=== PATIENT | female | born 1955 | race Caucasian/White ===

== ENCOUNTER 2022-11-12 15:28 | Inpatient (IN) | payer OTHER, SELFPAY ==
[2022-11-12] VITALS (16 sets, daily range): BP systolic 0–135; BP diastolic 0–77; PULSE 0–92; RESP 0–29; TEMP -17.7–36.7; O2SAT 0–100; BMI 24.3
[2022-11-12] MEDS: TICAGRELOR 90 MG TABLET 180 MG PO (15:29)
[2022-11-12] MEDS: Heparin Injection (Vial) 5,000 UNIT/ML VIAL 4000 UNIT IV (15:29)
--- NOTE | 2022-11-12 15:35 | EDS_ITS ---
HPI History of Present Illness Chief Complaint: Chest Pain Detail of Chief Complaint: Midsternal chest pain Informant: patient Onset/Context/Timing Onset: Yesterday Activity at onset: light activity Timing: Continuous Quality: Positive for Aching and Heaviness Location: Substernal Current Severity: Mild Maximum Severity: Severe Worsened By: Exertion Relieved By: Nothing Associated Symptoms: Positive for Nausea and Dyspnea; Negative for Vomiting, Diaphoresis, Cough, Fever, Lightheadedness, Acid Reflux or Palpitations Narrative Narrative: Patient is a 66-year-old woman who arrived by ambulance. Prehospital EKG reveals an acute inferior ST elevation MT with reciprocal changes. Rhythm is sinus. Patient is still complaining of chest pain. She denies prior history MT . She does have history of hypertension and hypercholesterolemia. She received aspirin prehospital. Upon arrival patient was treated with heparin and Brilinta. Case was discussed with clinical lab assistant prior to arrival. Machine Filler Shredder was made aware. Prior Similar Symptoms: No Recent Illness/Hospitalization: No CVD Risk Factors: Positive for Hypertension and Hypercholesterolemia; Negative for Diabetes, Family History 1' </=55 or Smoking PE Risk Factors: Negative for Recent Travel/Surgery, Recent Immobilization or Prior DVT or PE TAD Risk Factors: Positive for Hypertension; Negative for Marfan's Syndrome or Family History PFSH PFSH no medical history (Pretension hypercholesterolemia) Home Medications Benazepril Hcl [Lotensin] 5 mg PO DAILY 12/30/15 [History Last Taken 01/02/16] aspirin 81 mg chewable tablet 81 mg PO DAILY@0800 12/30/15 [History Last Taken 01/02/16] atorvastatin 40 mg tablet 40 mg PO QHS 12/30/15 [History Last Taken Unknown] isosorbide dinitrate 5 mg tablet (Isordil Titradose) 10 mg PO TID 12/30/15 [History Last Taken 01/02/16] methimazole 5 mg tablet 7.5 mg PO DAILY 12/30/15 [History Last Taken Unknown] triamterene 75 mg-hydrochlorothiazide 50 mg tablet 1 tab PO DAILY 12/30/15 [History Last Taken Unknown] Allergy/AdvReac Type Severity Reaction Status Date / Time No Known Allergies Allergy Verified 12/30/15 07:03 Surgical History unable to obtain Social History Smoking Status: Never smoker ROS ROS ED Constitutional Constitutional ED: Denies chills, fever(s) or subjective Eyes Eyes: Reports none Cardiovascular Cardiovascular: Reports as per HPI Respiratory/Chest Respiratory/Chest: Reports dyspnea EXAM Physical Exam Const Vital Signs: 11/12/22 15:30 Temperature 98.1 F Temperature Source Temporal Positive well nourished, well developed and obese General Appearance ED: well developed and NAD Nutritional Appearance: obese HEENT Reports TM's clear and moist mucous membranes normocephalic and atraumatic Tympanic Membrane ED: Yes TM's clear Eyes PERRL and EOMs intact bilaterally General Eye ED: Negative for pale conjunctiva or scleral icterus Neck no lymphadenopathy, supple and no JVD Chest Wall inspection of chest normal and palpation of chest normal Resp normal respiratory effort and clear to auscultation bilaterally Cardio regular rate, regular rhythm, S1 normal heart sound, S2 normal heart sound and no murmurs Peripheral Pulses: pulses 2+ throughout GI normal to inspection, nondistended, normoactive bowel sounds, soft to palpation, non-tender and non-distended; Negative for hepatosplenomegaly or no masses Back/Spine no CVA tenderness Extremity normal to inspection General Extremety ED: Negative for edema or pulses abnormal General Extremity: Negative for edema or pulses abnormal Neuro oriented x3 and CN's II-XII intact bilaterally Sensorium / Orientation: awake and alert Psych mental status grossly normal Skin no rashes or lesions noted and no wounds MDM MDM MDM Narrative Medical decision making narrative: Prehospital EKG reveals acute inferior ST elevation MT. There is reciprocal changes noted. Rate is normal. STEMI alert was called based on prehospital EKG. EKG was not repeated when patient arrived. She was treated with Brilinta and heparin. She received 4 baby aspirin prior to arrival. Machine Filler Shredder was ready. Once she was given her meds she was taken to the Machine Filler Shredder. dedicated regional driver made aware. Chest x-ray was not obtained. Blood work was ordered. Critical Care Time Critical Care Time: Yes Critical care time (excluding procedures): 30-74 minutes (10 minutes), Including time spent: (History,, documentation, review of prior Machine Filler Shredder), Discussing w/Patient &/or Family/Monument Stonecutter, Discussing w/Consultants and Arranging Admission or Transfer Discharge Plan Triage Chief Complaint: Chest Pain ED Provider: Provider,Ed Physician Dx/Rx/DC Orders Clinical Impression: Acute inferior myocardial infarction, History of primary hypertension, Hx of hypercholesterolemia Primary Care Provider: Michael Small Disposition Disposition: Acute Care Hospital [facility]
--- NOTE | 2022-11-12 15:36 | NURSING ---
NO OLD EKGS
--- NOTE | 2022-11-12 15:39 | NURSING ---
CV ICU 202
--- NOTE | 2022-11-12 15:41 | NURSING ---
1509 STEMI CALLED PRIOR TO ARRIVAL
[2022-11-12] MEDS: Amiodarone 360 MG in Dextrose 5% Viaflo Bag 192.8 ML 33.3 MG CONT INF (16:00)
[2022-11-12] MEDS: 0.9% Normal Saline 1,000 ML 150 ML IV (16:00)
--- NOTE | 2022-11-12 16:05 | CM.ED ---
Social Work Note Referral Source: Stemi Alert Referral Reason: emotional support SW met with patient's daughter and Ray ([facility] [place]) and introduced herself and role as [facility] C S S Representative. SW provided patient with emotional support while in the cardiac cath lab radiology technologist waiting area. Patient's daughter states she will be staying with patient during her procedure to support her. No other needs voiced at this time. SW remains available if other needs arise. Krissy Aly BARREL CLEANER, ANA
--- NOTE | 2022-11-12 16:25 | ECHOD_ITS ---
Reason For Study: CHEST PAIN Procedure This was a 2D Doppler, Color Flow transthoracic echocardiogram. Exam performed portable in ICU/CCU. Left Ventricle Normal size and thickness. The left ventricular ejection fraction is 55 %. Infero-Basal: Severely Hypokinetic. Right Ventricle Normal right ventricle. Atria The left and right atria are normal. Mitral Valve Mild-Moderate (1-2+) mitral valve insufficiency. Tricuspid Valve Normal tricuspid valve. Aortic Valve Trisinus/trileaflet aortic valve. Pulmonic Valve The pulmonic valve is not well visualized. Great Vessels Normal sized aortic root. Pericardium/Pleural No pericardial effusion. MMode/2D Measurements & Calculations RVDd: 1.7 cm Ao root diam: 2.8 cm LAV(MOD-sp4): 17.6 ml LVAd ap4: 16.8 cm2 SV(MOD-sp4): 15.3 ml SV(sp4-el): 16.2 ml LVLd ap4: 6.3 cm EDV(MOD-sp4): 37.3 ml EDV(sp4-el): 38.2 ml LVAs ap4: 11.4 cm2 LVLs ap4: 5.0 cm ESV(MOD-sp4): 21.9 ml ESV(sp4-el): 22.0 ml EF(MOD-sp4): 41.2 % EF(sp4-el): 42.5 % LA A4 area: 9.0 cm2 LA dimension(2D): 2.8 cm RA A4 area: 8.5 cm2 Time Measurements MV dec time: 0.16 sec Doppler Measurements & Calculations MV E max esa: 67.6 cm/sec Lat Peak E' Esa: 5.0 cm/sec Med Peak E' Esa: 6.6 cm/sec MV A max esa: 118.0 cm/sec E/E' lat: 13.4 E/E' med: 10.3 MV E/A: 0.57 MV V2 max: 113.8 cm/sec Ao V2 max: 113.5 cm/sec MV max P.2 mmHg MV dec slope: 425.0 cm/sec2 Ao max P.2 mmHg MV V2 mean: 53.4 cm/sec Ao V2 mean: 75.2 cm/sec MV mean P.5 mmHg Ao mean P.6 mmHg MV V2 VTI: 33.7 cm Ao V2 VTI: 23.4 cm AV (velocity ratio): 0.84 LV V1 max: 91.5 cm/sec LV V1 max P.4 mmHg LV V1 mean P.7 mmHg LV V1 mean: 59.8 cm/sec LV V1 VTI: 19.7 cm ECHO/Echo Complete Interpretation Summary The left ventricular ejection fraction is 55 %. Infero-Basal: Severely Hypokinetic. Mild-Moderate (1-2+) mitral valve insufficiency. Ordering Physician: Patience Mcgrath Referring Physician: DUSTY MONTERO Performed By: Sheridan Padron RCS
--- NOTE | 2022-11-12 16:30 | EKG12_ITS ---
Test Reason : AM EKG Blood Pressure : / mmHG Vent. Rate : 073 BPM Atrial Rate : 073 BPM P-R Int : 148 ms QRS Dur : 086 ms QT Int : 424 ms P-R-T Axes : 061 030 -50 degrees QTc Int : 467 ms Normal sinus rhythm Low voltage QRS Inferior infarct , age undetermined Abnormal ECG When compared with ECG of 13-NOV-2022 05:20, MANUAL COMPARISON REQUIRED, DATA IS UNCONFIRMED Confirmed by CHEYENNE CHAMBERS, MICHAEL ([id number]), editor school photograph TAYLER WHITLOCK ([id number]) on 11/14/2022 12:58:12 PM Referred By: COURTNEY Confirmed By:MICHAEL QUINN MD
--- NOTE | 2022-11-12 16:33 | CON.PCM.CA_ITS ---
Assessment & Plan Assessment/Plan (1) Acute inferior myocardial infarction: PLAN: After obtaining informed consent, emergent coronary angiography was performed. This showed total occlusion of the proximal right coronary artery. Successful percutaneous revascularization was performed with balloon angioplasty and placement of 2 drug-eluting stents to the mid and proximal right coronary artery. Excellent results were noted with sabianism of NEO-3 flow and resolution of EKG changes. Continue aspirin lifelong. Clopidogrel treatment for at least 1 year. (2) Coronary artery disease: PLAN: See #1 above. Residual lesion in left circumflex/obtuse marginal. For staged PCI. Start beta-blockers. Start low-dose NORBERTO inhibitor's. Statins. Check echo. (3) Hypertension: PLAN: Beta-blockers and NORBERTO inhibitors. (4) Hx of hypercholesterolemia: PLAN: Atorvastatin. (5) Hyperthyroidism: PLAN: As per internal medicine. HPI Consult Data Date of Consult: 11/13/22 HPI Narrative HPI Narrative: The patient developed intrascapular pain earlier today. EMS was called. An EKG was done in the field which showed changes consistent with acute inferior ST elevation myocardial infarction. Subsequently a STEMI alert was called. No previous history of coronary artery disease. [facility] Medical History (Updated 11/13/22 @ 07:48 by Padmini Montenegro) Atherosclerosis of coronary artery of [facility] [place] heart without angina pectoris STEMI (ST elevation myocardial infarction) (~11/12/22) Medical History no medical history Home Medications Benazepril Hcl [Lotensin] 5 mg PO DAILY Check with primary doctor 12/30/15 [History Last Taken 01/02/16] aspirin 81 mg chewable tablet 81 mg PO DAILY@0800 Check with primary doctor 12/30/15 [History Last Taken 01/02/16] atorvastatin 40 mg tablet 40 mg PO QHS Check with primary doctor 12/30/15 [History Last Taken Unknown] isosorbide dinitrate 5 mg tablet (Isordil Titradose) 10 mg PO TID Check with primary doctor 12/30/15 [History Last Taken 01/02/16] methimazole 5 mg tablet 7.5 mg PO DAILY Check with primary doctor 12/30/15 [History Last Taken Unknown] triamterene 75 mg-hydrochlorothiazide 50 mg tablet 1 tab PO DAILY Check with primary doctor 12/30/15 [History Last Taken Unknown] Allergy/AdvReac Type Severity Reaction Status Date / Time No Known Allergies Allergy Verified 12/30/15 07:03 Surgical History (Updated 11/13/22 @ 07:49 by Padmini Montenegro) History of coronary artery stent placement (~11/12/22) Surgical History unable to obtain Social History Smoking Status: Never smoker ROS Constitutional Constitutional: Reports as per HPI Physical Exam Narrative Mildly anxious. Respirations unlabored. Heart rate regular rate and rhythm. Alert oriented x3. Moving all 4 extremities. Risk Stratification Risk Stratification Applicable: No Objective Data Vital Signs: Vital Signs Temp Pulse Resp BP Pulse Ox 0 F L 0 L 0 L 0/0 L 0 11/12/22 15:52 11/12/22 15:52 11/12/22 15:52 11/12/22 15:52 11/12/22 15:52 Weight: 0 oz Body Mass Index (BMI) 0.0 Lab / Micro Data Result Diagrams: 11/13/22 06:08 11/13/22 06:08 Cardiology Labs/Tests Rhythm: EKG: ECHO: Stress Test: Cardiac Cath: PCI: CT Surgery: Holter monitor: EPS: PPM: CXR: Chest CT Scan:
--- NOTE | 2022-11-12 16:52 | CL.I_ITS ---
Patient Name: GARRICK SETH Study Date: 11/12/2022 Performing: Patience Mcgrath MD Ht: inches cm : 1955 Wt: lbs kg Age: 66 Gender: female BSA: PROCEDURE(S) PERFORMED DC01-(03330)LHC/COR/LV IC16-([id number]/[id number])AMI, GUSTAVO OR PTCA, ARTERY/GRAFT, SINGLE VESSEL CLINICAL PROFILE AND CO-MORBIDITIES Indications: ACS <= 24 hrs Heart Failure: None CAD Presentations: STEMI. Symptom onset Date/Time: Time Not Available CONCLUSIONS 100% Prox RCA 90% Prox OM1 90% Prox OM2 (small 1.5 mm vessel) LVEF 55% (post-dilated using 2.75 mm balloon) RECOMMENDATIONS ASA Indefinitley Plavix for at least 12 months Staged PCI to OM1 DESCRIPTION OF PROCEDURE The patient arrived to the procedure lab. The risks and benefits of the procedure as well as a full description of our services here and lack of surgical backup were fully explained to the patient and/or their significant other prior to the catheterization. The Timeout was completed, verifying the correct patient and procedure. The patient's procedural site was prepped and draped in the usual fashion. Local anesthetic was given subcutaneously to right radial region with Lidocaine 2%. Using a modified Seldinger technique, arterial access was obtained via the right radial artery, a 6Fr sheath was inserted.. Right Coronary Artery selective angiography was then performed in multiple views using a 5 Fr. 4.0 [place] catheter. Left Coronary Artery selective angiography was performed in multiple views using a 5 Fr. 4.0 [place] catheterThe images were reviewed and options discussed. A decision was then made to proceed with an Intervention, IVUS or other adjunct procedure. JR4 Guide catheter was inserted and engaged into the RCA. Runthrough Guide wire was advanced to the RCA. Euphora 2.5 x 15 Balloon catheter was inserted. Balloon catheter was advanced across lesion in the right coronary, proximal. PTCA balloon inflated at 8 atms for 10 secs. Angiogram performed post balloon dilatation. PTCA balloon inflated at 6 atms for 7 secs. Resolute Ehsan 2.5 x 18 Drug Eluting stent was inserted. Drug Eluting stent was advanced across the lesion in the right coronary, proximal. Angiogram performed post stent deployment. Resolute Ehsan 2.75 x 22 Drug Eluting stent was inserted. Drug Eluting stent was advanced across the lesion in the right coronary, proximal. Angiogram performed pre stent deployment. Angiogram performed post stent deployment. NC Emerge 2.75 x 20 Balloon catheter was inserted. Balloon catheter was advanced across lesion in the right coronary, proximal. Angiogram performed post balloon dilatation. The arterial sheath was pulled and a TR Band was applied for hemostasis CORONARY ANGIOGRAPHY DOMINANCE: Right Dominant LEFT HEART ASSESSMENT Left Ventricular Ejection Fraction: by LV Gram 55 % LVEDP: 28 mmHg LEFT MAIN: Angiographically normal LEFT ANTERIOR DESCENDING ARTERY: LAD: Luminal Irregularities 30% Proximal lesion in LAD CIRCUMFLEX ARTERY: CIRCUMFLEX: Tubular 70% Mid lesion in Circumflex OM 1: Tubular 90% Ostial lesion in 1st OM OM 2: Tubular 90% Ostial lesion in 2nd OM RIGHT CORONARY ARTERY: RCA: Tubular 65% Proximal lesion in RCA Complex 100% Proximal lesion in RCA INTERVENTION INFORMATION LESION SITE: RCA (Proximal) Lesion Complexity: High/C, thrombus present: Yes, lesion length: 38 mm, culprit lesion: Yes Pre Stenosis: 100 % Pre intervention NEO flow: 0 PROCEDURE: Drug Eluting Stent with pre and post dilatation Post Stenosis: 0 % Post intervention NEO flow: 3 Lesion Devices: Cordis 6 Fr JR4 100cm Guide Catheter Terumo .014 180cm Runthrough Extra Floppy straight Medtronic SC EUPHORA RX 2.5x15 BALLOON Medtronic Resolute [place] RX GUSTAVO 2.5x18 Jamie Sci NC EMERGE MR 2.75x20 BALLOON Medtronic Resolute Ehsan RX GUSTAVO 2.5x18 COMPLICATIONS No Complications PROCEDURE MEDICATIONS Oxygen: 2 L/min via nasal cannula Atropine 1mg/10ml 0.5 amp 11/12/2022 15:55:53 Amiodarone 150 mg 11/12/2022 16:06:54 Amiodarone 500mg / 100ml D5W @ 1 mg/min IV started (Bag One) @ 11/12/2022 16:40:49 Nitro 100 mcg IC 11/12/2022 15:53:15 Verapamil 2.5mg, Ntg 200mcgs, given IA 11/12/2022 15:43:26 IV Bolus: .9 NaCl 350 ml total 11/12/2022 16:10:02 SUMMARY OF HEMODYNAMIC DATA Time AIR REST ECG 15:37:33 AO 109/58 (80) SA 15:45:17 LV 140/3, 23 16:14:08 LV 142/2, 28 16:14:16 LV 150/3, 30 16:16:38 LVp 149/3, 32 16:16:42 AOp 141/63 (92) 16:16:49 Signed By Patience Mcgrath MD On 11/12/2022 16:52:01 Patience Mcgrath MD
--- NOTE | 2022-11-12 17:04 | CHAPLAIN ---
Type of Pastoral Visit ___ Initial Visit ___ Follow-up Visit ___ On-call Visit ___ General Patient Visit ___ Spiritual Assessment ___ Family Conference ___ Bereavement _x__ Rapid Response ___ Code Blue ___ Other (describe below) Pastoral Care Referral From ___ Patient _x__ Family ___ Nurse ___ Physician ___ Bakery Manager ___ Civil Engineering Assistant _x__ Other (describe below) Sacrament/Intervention _x__ Active listening ___ Anointing ___ Mormonism ___ Bereavement ___ Communion _x__ Aliyah exploration ___ _x__ Life review _x__ Prayer ___ Reconciliation ___ Sacrament of Sick _x__ Supportive presence ___ Wedding ___ Other (describe below) Pastoral Comments patient arrived by squad and taken to [facility]; met with daughter and escorted her to waiting room; gave presence and support; assisted daughter with making phone calls to notify other family members; sat with daughter and learned that patient's in the ICU two years ago and that brings back memories; daughter was remembering the kind service of care at that time and remembers involvement of this brokerage clerk; continued with family members as pt was given medical attention; escorted family to waiting room; prayers given
[2022-11-12 17:50] LABS: ACT Activated Clotting Time 287 sec (74-137)
--- NOTE | 2022-11-12 18:41 | HP.PCM.HOS_ITS ---
HPI - General General Date of Admission: 11/12/22 Date of Service: 11/12/22 Chief Complaint: chest pain HPI Narrative GARRICK SETH, is a 66 F with a PMh as outlined who presents via the ED on 11/12/2022 with a complaint of retrosternal and intrascapular pain which started earlier on the day of admission. Pain was persistent and had no aggravating or relieving factors. She called the EMS and prehospital EKG showed an acute inferior ST elevation HI with reciprocal changes. On arrival in the ED she was given heparin and Brilinta and was given aspirin in the EMS prior to getting to the hospital. STEMI alert was called and patient was sent emergently to the [facility] where she had emergent coronary angiography which showed total occlusion of the proximal RCA. She had successful PCI with balloon angioplasty and placement of 2 drug-eluting stents to the mid and proximal right coronary artery. She was admitted to the hospitalist service. Patient was seen in the ICU after the cardiac cath. She felt well and had no active complaints. She denied any chest pain, palpitation, dizziness, shortness of breath, nausea or vomiting or diarrhea. Review of systems otherwise negative. PFSH Medical History no medical history Home Medications Benazepril Hcl [Lotensin] 5 mg PO DAILY Check with primary doctor 12/30/15 [History Last Taken 01/02/16] aspirin 81 mg chewable tablet 81 mg PO DAILY@0800 Check with primary doctor 12/30/15 [History Last Taken 01/02/16] atorvastatin 40 mg tablet 40 mg PO QHS Check with primary doctor 12/30/15 [History Last Taken Unknown] isosorbide dinitrate 5 mg tablet (Isordil Titradose) 10 mg PO TID Check with primary doctor 12/30/15 [History Last Taken 01/02/16] methimazole 5 mg tablet 7.5 mg PO DAILY Check with primary doctor 12/30/15 [History Last Taken Unknown] triamterene 75 mg-hydrochlorothiazide 50 mg tablet 1 tab PO DAILY Check with primary doctor 12/30/15 [History Last Taken Unknown] Allergy/AdvReac Type Severity Reaction Status Date / Time No Known Allergies Allergy Verified 12/30/15 07:03 Surgical History unable to obtain Social History Smoking Status: Never smoker ROS Review of Systems ROS Unobtainable: Denies due to encephalopathy Constitutional Constitutional: Denies anorexia, chills, fatigue, fever(s) or malaise Eyes Eyes: Denies change in vision ENT HEENT: Reports nasal congestion; Denies dysphagia, headache(s), sore throat or other Cardiovascular Cardiovascular: Reports chest pain; Denies dyspnea on exertion, lightheadedness, orthopnea, palpitations, paroxysmal nocturnal dyspnea, rapid heart rate or syncope Respiratory/Chest Respiratory/Chest: Denies cough, dyspnea, productive cough, shortness of breath at rest or shortness of breath with exertion Gastrointestinal Gastrointestinal: Denies abdominal pain, constipation, diarrhea, nausea or vo miting Genitourinary Genitourinary: Denies dysuria Musculoskeletal Musculoskeletal: Denies arthralgias Neurologic Neurologic: Denies confusion, dizziness, focal weakness, headache(s), numbness, seizure-like activity, seizures or syncope Psychiatric Psychiatric: Denies anxiety or depression Vital Signs Vital Signs Vital Signs: 11/12/22 15:30 11/12/22 15:52 11/12/22 17:38 Temperature 98.1 F 0 F L Temperature Source Temporal Temporal Pulse Rate 0 L Respiratory Rate 0 L Blood Pressure 0/0 L Blood Pressure Mean Blood Pressure Source Blood Pressure Position Blood Pressure Location Pulse Ox 0 100 Oxygen Delivery Method Room Air 11/12/22 16:55 11/12/22 17:00 11/12/22 17:15 Temperature 97.1 F L Temperature Source Temporal Pulse Rate 92 84 77 Respiratory Rate 29 H 25 H 20 H Blood Pressure 131/70 H 134/69 H 131/77 H Blood Pressure Mean 90 90 95 Blood Pressure Source Monitor Monitor Monitor Blood Pressure Position Supine Supine Supine Blood Pressure Location Left Arm Left Arm Left Arm Pulse Ox 98 100 100 Oxygen Delivery Method Room Air Room Air Room Air 11/12/22 17:30 11/12/22 17:45 11/12/22 18:00 Temperature Temperature Source Pulse Rate 75 76 73 Respiratory Rate 20 H 21 H 18 Blood Pressure 120/66 128/61 H 127/64 H Blood Pressure Mean 84 83 85 Blood Pressure Source Monitor Monitor Monitor Blood Pressure Position Supine Supine Supine Blood Pressure Location Left Arm Left Arm Left Arm Pulse Ox 100 100 100 Oxygen Delivery Method Room Air Room Air Room Air Weight Weight: 124 lb 5.451 oz Body Mass Index (BMI) 24.3 Physical Exam Const alert, oriented x3, no apparent distress and average body habitus General Appearance: cooperative HEENT normocephalic, head/scalp atraumatic, hearing grossly normal bilaterally and moist oral mucous membranes Mouth: oral and palatal mucosa normal Eyes PERRL and EOMs intact bilaterally Neck no lymphadenopathy and supple Resp normal respiratory effort, no retractions, no use of accessory muscles and clear to auscultation bilaterally Cardio regular rate, regular rhythm, S1 normal heart sound, S2 normal heart sound and no murmurs GI normal to inspection, nondistended, normoactive bowel sounds, soft to palpation, non-tender and non-distended Extremity normal to inspection, full ROM and no clubbing, cyanosis or edema Neuro oriented x3, CN's II-XII intact bilaterally and moves all extremities Sensorium / Orientation: awake and alert Motor Exam: strength 5/5 throughout Psych affect normal Results Lab / Micro Data Labs: Laboratory Results - last 24 hr 11/12/22 15:40: Activated Clotting Time 287 H Assessment & Plan Assessment/Plan (1) Acute inferior myocardial infarction: PLAN: Plan #Acute inferior myocardial ischemia * admit to ICU post cath * had cardiac cath which showed total occlusion of the proximal RCA with balloon angioplasty and placement of 2 drug eluting stents t the mid and proximal RCA; she also had residual lesion in the left circumflex and obtuse marginal artery * for staged PCI of left circumflex and obtuse marginal artery * on aspirin, plavix and high intensity statin * on benazepril and triamterene/HCTZ * will place on beta aretha nad NORBERTO inhibitor * cardiology on board * #Hyperthyroidism: on imdur #Hypertension; on triamterene/HCT, as well as benzzepril DVT prophylaxis; lovenox Code status: full code * Patient counseled extensively about different types of CODE STATUS including full code, DNR CCA and DNR CCA. Patient elects to be full code. * Total [id number] time 17 minutes. Charges/Coding Visit Charges Inpatient E&M: 25117 Init Hosp L3 Procedures Hospitalists Procedures: 55593 Advncd Care Plan 30 Min
[2022-11-12 20:15] LABS: Absolute Lymphocyte Count 1.28 X10^3/uL (0.83-4.51); Absolute Neutrophil Count 8.4 X10^3/uL (2.0-7.7); Basophil# 0.01 X10^3/uL; Basophil% 0.1 % (0-1); Hematocrit 37.2 % (37-47); Hemoglobin 12.6 g/dL (12.0-15.0); Lymphocyte # 1.28 X10^3/ul (0.83-4.51); Lymphocyte % 12.5 % (19-41); Mean Corp Hgb Conc 33.9 g/dL (32-36); Mean Corpuscular Hgb 30.7 pg (27.0-32.0); Mean Corpuscular Volume 90.7 fL (81-99); Mean Platelet Vol. 9.3 fl (6.2-12.0); Monocyte# 0.57 X10^3/uL; Monocyte% 5.6 % (0-10); NRBC Flagged by Analyzer 0 % (0-5); Neutrophil # 8.35 X10^3/uL (2.7-7.7); Neutrophil % 81.5 % (47-70); Platelet Count 297 K/mm3 (150-450); RBC Distribution Width CV 12.4 % (11.6-14.6); RBC Distribution Width SD 41.2 fl (35.1-43.9); White Blood Count 10.2 K/mm3 (4.4-11.0)
[2022-11-12] MEDS: Atorvastatin Calcium 80 MG Tablet PO (20:18)
[2022-11-12] MEDS: Metoprolol Tartrate 25 MG Tablet PO (20:20)
[2022-11-12] MEDS: Clopidogrel Bisulfate 300 MG Tablet PO (20:20)
[2022-11-12] MEDS: Isosorbide DN 10 MG Tablet PO (20:20)
[2022-11-12 20:38] LABS: Anion Gap 9 (5-15); BUN 10 mg/dL (7-18); Chloride 99 mmol/L (98-107); Creatinine, Serum 0.77 mg/dL (0.55-1.02); EST Glomerular Filtration Rate 79 mL/min (>60); Est Glom Filt Rate - Afr Amer 96 mL/min (>60); Estimated Creatinine Clearance 38.68 ml/min; Glucose 173 mg/dL (74-106); Potassium 3.2 mmol/L (3.5-5.1); Sodium Level 133 mmol/L (136-145); Troponin-I HS 7008 pg/mL (3.0-54.0)
[2022-11-12] MEDS: Amiodarone 360 MG in Dextrose 5% Viaflo Bag 192.8 ML 16.7 MG CONT INF (22:39)
[2022-11-13] VITALS (25 sets, daily range): BP systolic 86–115; BP diastolic 46–62; PULSE 57–78; RESP 14–23; TEMP 36.6–36.9; O2SAT 96–100
[2022-11-13] MEDS: Isosorbide DN 10 MG Tablet PO (05:20)
[2022-11-13 06:13] LABS: Hematocrit 33.1 % (37-47); Hemoglobin 11.3 g/dL (12.0-15.0); Mean Corp Hgb Conc 34.1 g/dL (32-36); Mean Corpuscular Hgb 30.8 pg (27.0-32.0); Mean Corpuscular Volume 90.2 fL (81-99); Mean Platelet Vol. 9.5 fl (6.2-12.0); Platelet Count 251 K/mm3 (150-450); RBC Distribution Width CV 12.8 % (11.6-14.6); RBC Distribution Width SD 41.6 fl (35.1-43.9); Red Blood Count 3.67 M/mm3 (4.2-5.4); White Blood Count 8.9 K/mm3 (4.4-11.0)
[2022-11-13 06:31] LABS: ALB/GLOB Ratio 0.8 RATIO (0.9-2.4); AST(SGOT) 89 U/L (15-37); Alanine Aminotransfer ALT/SGPT 32 U/L (13-56); Albumin, Serum 2.6 g/dL (3.2-5.0); Alkaline Phosphatase 70 U/L (45-117); Anion Gap 9 (5-15); BUN 11 mg/dL (7-18); BUN/Creat Ratio 16.9 RATIO (10-20); Calcium,Total 8.4 mg/dL (8.5-10.1); Chloride 99 mmol/L (98-107); Cholesterol 185 mg/dL (200); Creatinine, Serum 0.65 mg/dL (0.55-1.02); EST Glomerular Filtration Rate 96 mL/min (>60); Est Glom Filt Rate - Afr Amer 116 mL/min (>60); Estimated Creatinine Clearance 38.68 ml/min; Globulin 3.2 g/dL (2.2-4.2); Glucose 148 mg/dL (74-106); High Density Lipoprotein 56 mg/dL; Potassium 3.3 mmol/L (3.5-5.1); Protein, Total 5.8 g/dL (6.4-8.2); Sodium Level 132 mmol/L (136-145); Triglycerides 81 mg/dL; Very Low Density Lipoprotein 16 mg/dL (5-40)
--- NOTE | 2022-11-13 07:02 | PCM.PN.HOSP ---
Subjective Subjective Patient is a 66-year-old female who was brought to the emergency department via ambulance with prehospital EKG that revealed acute inferior ST elevation SC with reciprocal changes. She was complaining of chest pain on presentation and has a history of hypertension hyperlipidemia. She reports perceived aspirin prehospital and upon arrival to emergency department received heparin and Brilinta and was taken to the Sign Writer [facility]. Cardiac catheterization revealed total occlusion of the proximal RCA and successful PCI with GUSTAVO x2 were placed into the mid and proximal right coronary artery. Patient states she is chest pain-free at the time of my evaluation having no significant symptoms. Family at bedside and all questions answered. Awaiting cardiology exam and plan. Objective Data Objective Data Vital Signs: Vital Signs Temp Pulse Resp BP Pulse Ox O2 Del Method 98.4 F 62 16 99/58 L 98 Room Air 11/13/22 04:00 11/13/22 06:00 11/13/22 06:00 11/13/22 06:00 11/13/22 06:00 11/13/22 06:00 Oxygen Delivery Method Room Air Weight: 58.1 kg Body Mass Index (BMI) 24.3 Intake & Output: Intake and Output for Last 24 Hours 11/11/22 11/12/22 11/13/22 23:59 23:59 23:59 Intake Total 1300 / 1300 222.75 / 222.75 Output Total 800 / 800 600 / 600 Balance 500 / 500 -377.25 / -377.25 Lab / Micro Data Result Diagrams: 11/13/22 06:08 11/13/22 06:08 Labs: Laboratory Results - last 24 hr 11/12/22 15:40: Activated Clotting Time 287 H 11/12/22 19:55: WBC 10.2, RBC 4.10 L, Hgb 12.6, Hct 37.2, MCV 90.7, MCH 30.7, MCHC 33.9, RDW Std Deviation 41.2, RDW Coeff of Jesus 12.4, Plt Count 297, MPV 9.3, Immature Gran % (Auto) 0.300, Neut % (Auto) 81.5 H, Lymph % (Auto) 12.5 L, [place] % (Auto) 5.6, Eos % (Auto) 0.0, Baso % (Auto) 0.1, Absolute Neuts (auto) 8.4 H, Absolute Lymphs (auto) 1.28, Nucleated RBC % 0 11/12/22 19:55: PT 13.0, INR 1.0, APTT 28.0 11/12/22 19:55: Sodium 133 L, Potassium 3.2 L, Chloride 99, Carbon Dioxide 25.0, Anion Gap 9, BUN 10, Creatinine 0.77, Estim Creat Clear Calc 38.68, Est GFR (MDRD) Af Amer 96, Est GFR (MDRD) Non-Af 79, BUN/Creatinine Ratio 13.0, Glucose 173 H, Calcium 9.0, Troponin I High Sens 7008 H* 11/13/22 05:05: WBC Cancelled, Corrected WBC Cancelled, RBC Cancelled, Hgb Cancelled, Hct Cancelled, MCV Cancelled, MCH Cancelled, MCHC Cancelled, RDW Std Deviation Cancelled, RDW Coeff of Jesus Cancelled, Plt Count Cancelled, MPV Cancelled, Diff Path Review Cancelled 11/13/22 05:05: Sodium Cancelled, Potassium Cancelled, Chloride Cancelled, Carbon Dioxide Cancelled, Anion Gap Cancelled, BUN Cancelled, Creatinine Cancelled, Estim Creat Clear Calc Cancelled, Est GFR (MDRD) Af Amer Cancelled, Est GFR (MDRD) Non-Af Cancelled, BUN/Creatinine Ratio Cancelled, Glucose Cancelled, Calcium Cancelled, Total Bilirubin Cancelled, AST Cancelled, ALT Cancelled, Alkaline Phosphatase Cancelled, Total Protein Cancelled, Albumin Cancelled, Globulin Cancelled, Albumin/Globulin Ratio Cancelled, Triglycerides Cancelled, Cholesterol Cancelled, LDL Cholesterol Cancelled, VLDL Cholesterol Cancelled, HDL Cholesterol Cancelled 11/13/22 06:08: Sodium 132 L, Potassium 3.3 L, Chloride 99, Carbon Dioxide 24.0, Anion Gap 9, BUN 11, Creatinine 0.65, Estim Creat Clear Calc 38.68, Est GFR (MDRD) Af Amer 116, Est GFR (MDRD) Non-Af 96, BUN/Creatinine Ratio 16.9, Glucose 148 H, Calcium 8.4 L, Total Bilirubin 0.80, AST 89 H, ALT 32, Alkaline Phosphatase 70, Total Protein 5.8 L, Albumin 2.6 L, Globulin 3.2, Albumin/Globulin Ratio 0.8 L, Triglycerides 81, Cholesterol 185, LDL Cholesterol 113, VLDL Cholesterol 16, HDL Cholesterol 56 11/13/22 06:08: WBC 8.9, RBC 3.67 L, Hgb 11.3 L, Hct 33.1 L, MCV 90.2, MCH 30.8, MCHC 34.1, RDW Std Deviation 41.6, RDW Coeff of Jesus 12.8, Plt Count 251, MPV 9.5 Physical Exam Const alert, oriented x3, no apparent distress and well nourished Constitutional Narrative: Upper middle-aged white female sitting up in a chair at the bedside, patient appears older than stated age, family at bedside, patient appears comfortable and nontoxic HEENT head/scalp atraumatic and moist oral mucous membranes HEENT Narrative: Mallampati 2, no thrush Head and Scalp: normocephalic Resp normal respiratory effort, no retractions, no use of accessory muscles and clear to auscultation bilaterally Auscultation: Negative for crackles, rhonchi or wheezes Cardio regular rate, regular rhythm, S1 normal heart sound, S2 normal heart sound, no murmurs, no rub, no gallops and no clicks GI normal to inspection, nondistended, normoactive bowel sounds, soft to palpation and non-tender Extremity no clubbing, cyanosis or edema Extremity Narrative: 2+ pedal pulses Neuro oriented x3, moves all extremities and no focal motor deficits Neuro Narrative: Mild generalized weakness proximal greater than distal but no focal deficits Speech: speech normal Psych affect normal Psych Narrative: Very pleasant, appropriately interactive Assessment & Plan Assessment/Plan (1) Acute inferior myocardial infarction: (2) Hypokalemia: (3) Hyponatremia: (4) SVT (supraventricular tachycardia): PLAN: Plan STEMI -Acute inferior myocardial infarction -Status post PCI with GUSTAVO x2 to mid and proximal RCA -Echocardiogram pending -Check hemoglobin A1c as she has been hyperglycemic -Total cholesterol is 185/LDL 113/HDL 56/triglycerides 81 -Continue aspirin 81 mg daily -Continue Plavix 75 mg daily -Continue lisinopril 2.5 mg daily -Continue metoprolol 25 mg p.o. twice daily -Continue atorvastatin 80 mg daily CAD -Patient with residual lesion in left circumflex -Plan is for PCI to this lesion tomorrow -Possible discharge tomorrow depending on cardiology input SVT -Patient evidently had some SVT post cath -Amiodarone was started by cardiology -Amnio drip was discontinued as patient has had no recurrent episode Hypokalemia -P.o. potassium replacement with 40 mill equivalents p.o. potassium -Repeat in a.m. -Check a.m. magnesium level Hyponatremia -Discontinue HCTZ/triamterene -Repeat BMP in a.m. Hyperlipidemia -Total cholesterol is 185/LDL 113/HDL 56/triglycerides 81 -Continue high intensity dose statin -Home dose is 40 mg--> will need 80 mg dose at discharge Hypertension -We will discontinue triamterene/HCTZ with addition of new medication and blood pressure is on the low side of normal at this time -Continue metoprolol -Continue NORBERTO inhibitor -We will continue isosorbide dinitrate for now -If BP remains on the low side we will consider discontinuing this prior to discharge Hyperthyroidism -Check TSH -Continue methimazole -Patient is now on beta-aretha for the above Hyperglycemia -Patient without history of DM-2 -Check hemoglobin A1c DVT prophylaxis -Start enoxaparin 40 mg CODE STATUS -Full code Charges/Coding Visit Charges Inpatient E&M: 67455 Subs Hosp L2
[2022-11-13 07:46] LABS: Thyroid Stim Hormone (TSH) 1.79 uIU/mL (0.358-3.74)
[2022-11-13 07:58] LABS: Hemoglobin A1c 6.3 % (3.8-5.6)
[2022-11-13] MEDS: Enoxaparin 40 MG/0.4 ML Syringe SC (08:32)
[2022-11-13] MEDS: Aspirin 81 MG TAB.CHEW PO (08:35)
[2022-11-13] MEDS: Metoprolol Tartrate 25 MG Tablet PO ×2 (08:35→21:00)
[2022-11-13] MEDS: Potassium Chloride Oral Tablet 20 MEQ 40 MEQ PO (08:38)
[2022-11-13] MEDS: Clopidogrel Bisulfate 75 MG Tablet PO (08:38)
[2022-11-13] MEDS: Methimazole 5 MG Tablet 7.5 MG PO (08:39)
[2022-11-13] MEDS: Lisinopril 2.5 MG Tablet PO (08:41)
--- NOTE | 2022-11-13 10:00 | EKG12_ITS ---
Test Reason : AM EKG Blood Pressure : / mmHG Vent. Rate : 062 BPM Atrial Rate : 062 BPM P-R Int : 150 ms QRS Dur : 086 ms QT Int : 518 ms P-R-T Axes : 051 020 008 degrees QTc Int : 525 ms Normal sinus rhythm Low voltage QRS Inferior infarct , age undetermined Prolonged QT Anterior IN, age undetermined, cannot be excluded Abnormal ECG Confirmed by GOMEZ CHAMBERS, ANDI ([id number]), publications editor TAYLER WHITLOCK ([id number]) on 11/14/2022 9:08:10 AM Referred By: COURTNEY Confirmed By:ANDI DYER MD
--- NOTE | 2022-11-13 10:02 | CASEMGMT ---
Social Work As per admitting clinical review nurse, pt does not have LW/POA and declined further information at this time. GENNA Chi
[2022-11-13] MEDS: Amiodarone 360 MG in Dextrose 5% Viaflo Bag 192.8 ML 16.7 MG CONT INF (10:20)
--- NOTE | 2022-11-13 11:38 | PN.CARD_ITS ---
Subjective Subjective Feels better. Minimal intermittent intrascapular discomfort Objective Data Vital Signs: Vital Signs Temp Pulse Resp BP Pulse Ox O2 Del Method 98.4 F 60 19 H 93/51 L 99 Room Air 11/13/22 04:00 11/13/22 11:03 11/13/22 11:03 11/13/22 11:03 11/13/22 11:03 11/13/22 11:03 Oxygen Delivery Method Room Air Weight: 128 lb 1.417 oz Body Mass Index (BMI) 24.3 Intake & Output: Intake and Output for Last 24 Hours 11/11/22 11/12/22 11/13/22 23:59 23:59 23:59 Intake Total 1300 / 1300 507.09 / 507.09 Output Total 800 / 800 600 / 600 Balance 500 / 500 -92.91 / -92.91 Lab / Micro Data Result Diagrams: 11/13/22 06:08 11/13/22 06:08 Labs: Laboratory Results - last 24 hr 11/12/22 15:40: Activated Clotting Time 287 H 11/12/22 19:55: WBC 10.2, RBC 4.10 L, Hgb 12.6, Hct 37.2, MCV 90.7, MCH 30.7, MCHC 33.9, RDW Std Deviation 41.2, RDW Coeff of Jesus 12.4, Plt Count 297, MPV 9.3, Immature Gran % (Auto) 0.300, Neut % (Auto) 81.5 H, Lymph % (Auto) 12.5 L, [place] % (Auto) 5.6, Eos % (Auto) 0.0, Baso % (Auto) 0.1, Absolute Neuts (auto) 8.4 H, Absolute Lymphs (auto) 1.28, Nucleated RBC % 0 11/12/22 19:55: PT 13.0, INR 1.0, APTT 28.0 11/12/22 19:55: Sodium 133 L, Potassium 3.2 L, Chloride 99, Carbon Dioxide 25.0, Anion Gap 9, BUN 10, Creatinine 0.77, Estim Creat Clear Calc 38.68, Est GFR (MDRD) Af Amer 96, Est GFR (MDRD) Non-Af 79, BUN/Creatinine Ratio 13.0, Glucose 173 H, Calcium 9.0, Troponin I High Sens 7008 H* 11/13/22 05:05: WBC Cancelled, Corrected WBC Cancelled, RBC Cancelled, Hgb Cancelled, Hct Cancelled, MCV Cancelled, MCH Cancelled, MCHC Cancelled, RDW Std Deviation Cancelled, RDW Coeff of Jesus Cancelled, Plt Count Cancelled, MPV Cancelled, Diff Path Review Cancelled 11/13/22 05:05: Sodium Cancelled, Potassium Cancelled, Chloride Cancelled, Carbon Dioxide Cancelled, Anion Gap Cancelled, BUN Cancelled, Creatinine Can celled, Estim Creat Clear Calc Cancelled, Est GFR (MDRD) Af Amer Cancelled, Est GFR (MDRD) Non-Af Cancelled, BUN/Creatinine Ratio Cancelled, Glucose Cancelled, Calcium Cancelled, Total Bilirubin Cancelled, AST Cancelled, ALT Cancelled, Alkaline Phosphatase Cancelled, Total Protein Cancelled, Albumin Cancelled, Globulin Cancelled, Albumin/Globulin Ratio Cancelled, Triglycerides Cancelled, Cholesterol Cancelled, LDL Cholesterol Cancelled, VLDL Cholesterol Cancelled, HDL Cholesterol Cancelled 11/13/22 06:08: Sodium 132 L, Potassium 3.3 L, Chloride 99, Carbon Dioxide 24.0, Anion Gap 9, BUN 11, Creatinine 0.65, Estim Creat Clear Calc 38.68, Est GFR (MDRD) Af Amer 116, Est GFR (MDRD) Non-Af 96, BUN/Creatinine Ratio 16.9, Glucose 148 H, Calcium 8.4 L, Total Bilirubin 0.80, AST 89 H, ALT 32, Alkaline Phosphatase 70, Total Protein 5.8 L, Albumin 2.6 L, Globulin 3.2, Albumin/Globulin Ratio 0.8 L, Triglycerides 81, Cholesterol 185, LDL Cholesterol 113, VLDL Cholesterol 16, HDL Cholesterol 56 11/13/22 06:08: WBC 8.9, RBC 3.67 L, Hgb 11.3 L, Hct 33.1 L, MCV 90.2, MCH 30.8, MCHC 34.1, RDW Std Deviation 41.6, RDW Coeff of Jesus 12.8, Plt Count 251, MPV 9.5 11/13/22 06:08: Hemoglobin A1c 6.3 H 11/13/22 06:08: TSH 1.79 Cardiology Labs/Tests 11/12/22 19:55: WBC 10.2, RBC 4.10 L, Hgb 12.6, Hct 37.2, MCV 90.7, MCH 30.7, MCHC 33.9, Plt Count 297, MPV 9.3, Immature Gran % (Auto) 0.300, Neut % (Auto) 81.5 H, Lymph % (Auto) 12.5 L, [place] % (Auto) 5.6, Eos % (Auto) 0.0, Baso % (Auto) 0.1, Absolute Neuts (auto) 8.4 H, Nucleated RBC % 0 11/12/22 19:55: PT 13.0, INR 1.0, APTT 28.0 11/12/22 19:55: Sodium 133 L, Potassium 3.2 L, Chloride 99, Carbon Dioxide 25.0, Anion Gap 9, BUN 10, Creatinine 0.77, Est GFR (MDRD) Af Amer 96, Est GFR (MDRD) Non-Af 79, BUN/Creatinine Ratio 13.0, Glucose 173 H, Calcium 9.0 11/13/22 05:05: WBC Cancelled, Corrected WBC Cancelled, RBC Cancelled, Hgb Cancelled, Hct Cancelled, MCV Cancelled, MCH Cancelled, MCHC Cancelled, Plt Count Cancelled, MPV Cancelled 11/13/22 05:05: Sodium Cancelled, Potassium Cancelled, Chloride Cancelled, Carbon Dioxide Cancelled, Anion Gap Cancelled, BUN Cancelled, Creatinine Cancelled, Est GFR (MDRD) Af Amer Cancelled, Est GFR (MDRD) Non-Af Cancelled, BUN/Creatinine Ratio Cancelled, Glucose Cancelled, Calcium Cancelled, Total Bilirubin Cancelled, Triglycerides Cancelled, Cholesterol Cancelled, LDL Cholesterol Cancelled, VLDL Cholesterol Cancelled, HDL Cholesterol Cancelled 11/13/22 06:08: Sodium 132 L, Potassium 3.3 L, Chloride 99, Carbon Dioxide 24.0, Anion Gap 9, BUN 11, Creatinine 0.65, Est GFR (MDRD) Af Amer 116, Est GFR (MDRD) Non-Af 96, BUN/Creatinine Ratio 16.9, Glucose 148 H, Calcium 8.4 L, Total Bilirubin 0.80, Triglycerides 81, Cholesterol 185, LDL Cholesterol 113, VLDL Cholesterol 16, HDL Cholesterol 56 11/13/22 06:08: WBC 8.9, RBC 3.67 L, Hgb 11.3 L, Hct 33.1 L, MCV 90.2, MCH 30.8, MCHC 34.1, Plt Count 251, MPV 9.5 11/13/22 06:08: Hemoglobin A1c 6.3 H Rhythm: EKG: ECHO: Stress Test: Cardiac Cath: PCI: CT Surgery: Holter monitor: EPS: PPM: CXR: Chest CT Scan: Physical Exam Narrative Heart sounds 1 and 2 are normal. No murmurs. No rubs. Chest clear to ausculta tion bilaterally. Alert oriented x3. No ankle edema. Right radial pulse 2+. Assessment & Plan Assessment/Plan (1) Acute inferior myocardial infarction: PLAN: Status post primary PCI with 2 drug-eluting stents to the proximal and mid right coronary artery. Stable. Continue medications. Run of SVT during cardiac catheterization yesterday. Stable since. Stop amiodarone. (2) Coronary artery disease: PLAN: Residual lesion in the left circumflex. Discussed with patient. Offered PCI. Risks benefits discussed. Understands and agrees. We will schedule for tomorrow. (3) History of primary hypertension: PLAN: Blood pressure presently borderline. Continue to monitor. (4) Hx of hypercholesterolemia: PLAN: Atorvastatin. (5) Hyperthyroidism: PLAN: As per internal medicine.
--- NOTE | 2022-11-13 11:53 | CHAPLAIN ---
Type of Pastoral Visit ___ Initial Visit _x__ Follow-up Visit ___ On-call Visit ___ General Patient Visit ___ Spiritual Assessment ___ Family Conference ___ Bereavement ___ Rapid Response ___ Code Blue ___ Other (describe below) Pastoral Care Referral From ___ Patient _x__ Family ___ Nurse ___ Physician ___ Barrel Endshaker Adjuster ___ Claim Investigator ___ Other (describe below) Sacrament/Intervention _x__ Active listening ___ Anointing ___ Gnosticist ___ Bereavement ___ Communion ___ Aliyah exploration ___ ___ Life review _x__ Prayer ___ Reconciliation ___ Sacrament of Sick ___ Supportive presence ___ Wedding ___ Other (describe below) Pastoral Comments patient is resting in the chair; family members have gone to lunch; pt acknowledges great and speedy care yesterday; pt will have more procedures done tomorrow as necessary; pt states I guess the Lord has something more yet for me; pt welcomes support through presence and prayer
--- NOTE | 2022-11-13 12:14 | CRPHASE1_ITS ---
Patient Communication Former Patient:: Phase I Guide to Cardiac Rehab Given to Patient:: Yes Cardiac Rehab Facility Choice List Given to Patient:: Yes Care Aide:: Patience Mcgrath Cardiac Rehabilitation Info Cardiac Rehabilitation Program Information: Cardiac Rehab The cardiac rehab team at [facility] consists of highly skilled exercise physiologists, nurses, respiratory therapists and physicians working together with you. Our purpose is to help you have a full recovery and achieve the goals you set for yourself. Over the years many of our patients have returned to activities they assumed they would never do again! We can help restore your confidence and motivation to make lifestyle changes that can have a significant impact on your health and quality of life! We can help answer questions and concerns you may have about exercise, lifestyle, medications, diet, stress and anxiety which are common following a hospitalization. WE monitor ECG and vital signs during exercise and discuss your progress with you and report to your physician(s). Cardiac Rehab is proven to help reduce readmissions, improve functional capacity and lower recurrence of problems with your heart. Our Cardiac Rehab program is Certified by the [employer] [employer] Pulmonary [employer] (AACVPR) and Accredited by the [employer] through our [facility]. You can contact us at . We invite you to call us with your questions or to get started in our program. If you have other questions or concerns be sure to ask y our physician/provider during your follow-up visit. WE look forward to seeing you!
--- NOTE | 2022-11-13 12:14 | CRPH1.INSTRU ---
General Education CAD and cardiac anatomy and function:: Patient communicates acknowledgment Explanation of diagnoses and procedures:: Patient communicates acknowledgment Sign/Symptoms of ND:: Patient communicates acknowledgment Antiplatelet therapy: Patient communicates acknowledgment Smoking Patient Nicotine/Smoking Risk Factors Are:: Never smoked Nicotine/Smoking Response Code:: Patient communicates acknowledgment Dyslipidemia Recommendations Include:: Lipid profile not available Dyslipidemia Response Code:: Patient communicates acknowledgment Overweight/Obesity Patient Overweight/Obesity Risk Factors Are:: BMI Normal [24-29 & > 65 years old] Overweight/Obesity:: Patient communicates acknowledgment Hypertension Recommendations Include:: Maintain BP <130/85 Hypertension:: Patient communicates acknowledgment Heart Disease Patient Heart Disease Risk Factors Are:: Family history of heart disease < 65 years old, Previous cardiac event Recommendations Include:: Educated family members of their risk Heart Disease Response Code:: Patient communicates acknowledgment Diabetes Patient Diabetes Risk Factors Are:: Elevated blood sugars Recommendations Include:: Maintain fasting blood sugars 70-110 md/dL, Maintain HgbA1c of 6% or less Diabetes:: Patient communicates acknowledgment Metabolic Syndrome Patient Metabolic Syndrome Risk Factors Are [3 of 5]:: Hypertension Recommendations Include:: Reinforce compliance to risk factor modifications Metabolic Syndrome Response Code:: Patient communicates acknowledgment Sedentary Recommendations Include:: Monitored Outpatient Cardiac Rehab Sedentary Response Code:: Patient communicates acknowledgment Stress Recommendations Include:: Identification of stressors, and assessment of coping skills Stress Response Code:: Patient communicates acknowledgment
--- NOTE | 2022-11-13 14:45 | CASEMGMT ---
RN CM PRODUCE SORTER CM to room to meet with patient for initial transition planning/care coordination assessment. RN YAJAIRA introduced self and role at [facility]. Pt voices understanding and consents to assessment at this time. Pt sitting up in chair in room in no distress at this time. 2 daughters @ bedside and pt agreeable to them being present during assessment. Pt is A/O at this time and answers all questions appropriately. Care providers, pharmacy, and demographics verified/updated at this time. PCP: Dr Small Specialists: none Preferred Pharmacy: [facility] Retail [place] [facility] [place]: [place] Living Will/HPOA: Pt does not currently have LW/HCPOA LNOK: 4 adult children Living Arrangements: Lives alone in one-story home w/no steps to enter. Independent w/ADL's and IADL's. Son, Nayan, lives nearby/on same property. Transportation: Hire drivers DME: Denies using any DME and denies needs. HHC/SNF: No hx of either. No needs identified. Pt wishes to return home and states has no concerns with going home at time of discharge. She states she has a good support system. CM to follow for any discharge planning/needs. Pt and dtr's voice no concerns/needs at this time. Advised them to ask for CM if any questions/concerns/needs arise. They voice understanding. PLAN: Home w/family support and discharge plans in place. Matilda JARRETT RN, CM
[2022-11-13] MEDS: Atorvastatin Calcium 80 MG Tablet PO (21:01)
[2022-11-14] VITALS (39 sets, daily range): BP systolic 86–120; BP diastolic 42–96; PULSE 62–77; RESP 14–22; TEMP 36.1–36.9; O2SAT 90–100
[2022-11-14 03:45] LABS: Absolute Lymphocyte Count 2.41 X10^3/uL (0.83-4.51); Absolute Neutrophil Count 5.3 X10^3/uL (2.0-7.7); Basophil# 0.02 X10^3/uL; Basophil% 0.2 % (0-1); Eosinophil# 0.07 X10^3/uL; Eosinophils% 0.8 % (0-5); Hematocrit 33.2 % (37-47); Hemoglobin 11.1 g/dL (12.0-15.0); Lymphocyte # 2.41 X10^3/ul (0.83-4.51); Lymphocyte % 26.8 % (19-41); Mean Corp Hgb Conc 33.4 g/dL (32-36); Mean Corpuscular Hgb 30.7 pg (27.0-32.0); Mean Corpuscular Volume 91.7 fL (81-99); Mean Platelet Vol. 9.6 fl (6.2-12.0); Monocyte# 1.12 X10^3/uL; Monocyte% 12.5 % (0-10); NRBC Flagged by Analyzer 0 % (0-5); Neutrophil # 5.34 X10^3/uL (2.7-7.7); Neutrophil % 59.5 % (47-70); Platelet Count 260 K/mm3 (150-450); RBC Distribution Width CV 13.1 % (11.6-14.6); RBC Distribution Width SD 43.4 fl (35.1-43.9); Red Blood Count 3.62 M/mm3 (4.2-5.4)
[2022-11-14 04:06] LABS: International Normalized Ratio 1.1; Prothrombin Time (Protime)PT. 13.5 SECONDS (11.7-14.9)
[2022-11-14 04:07] LABS: Partial Thromboplast Time 25.3 Seconds (24.1-36.2)
[2022-11-14 04:13] LABS: Anion Gap 6 (5-15); BUN 10 mg/dL (7-18); BUN/Creat Ratio 17.3 RATIO (10-20); Calcium,Total 8.5 mg/dL (8.5-10.1); Chloride 108 mmol/L (98-107); Creatinine, Serum 0.58 mg/dL (0.55-1.02); EST Glomerular Filtration Rate 110 mL/min (>60); Est Glom Filt Rate - Afr Amer 133 mL/min (>60); Estimated Creatinine Clearance 38.68 ml/min; Glucose 126 mg/dL (74-106); Potassium 3.6 mmol/L (3.5-5.1); Sodium Level 140 mmol/L (136-145)
[2022-11-14] MEDS: Aspirin 81 MG TAB.CHEW PO (06:18)
[2022-11-14] MEDS: Clopidogrel Bisulfate 75 MG Tablet PO (06:18)
[2022-11-14] MEDS: Metoprolol Tartrate 25 MG Tablet PO ×2 (08:22→21:25)
[2022-11-14] MEDS: Lisinopril 2.5 MG Tablet PO (08:22)
--- NOTE | 2022-11-14 09:43 | NURSING ---
Spoke to Paul Chambers RN in the laborer/key man that ICU staff unable to get another IV site on patient. Per laborer/key man RN OK to send patient without an IV and they will obtain access.
--- NOTE | 2022-11-14 10:00 | EKG12_ITS ---
Test Reason : POST HEART CATH Blood Pressure : / mmHG Vent. Rate : 078 BPM Atrial Rate : 078 BPM P-R Int : 152 ms QRS Dur : 088 ms QT Int : 424 ms P-R-T Axes : 063 022 014 degrees QTc Int : 483 ms Normal sinus rhythm Low voltage QRS Inferior infarct , age undetermined Poor R wave progression Abnormal ECG Confirmed by GOMEZ CHAMBERS, ANDI ([id number]), editorial assistant TAYLER WHITLOCK ([id number]) on 11/14/2022 9:09:23 AM Referred By: COURTNEY Confirmed By:ANDI DYER MD
--- NOTE | 2022-11-14 13:55 | PN.HOSP_ITS ---
Subjective Subjective No events overnight. No chest pain. Plan is for staged PCI today with anticipated discharge home tomorrow if patient continues to do well. Objective Data Objective Data Vital Signs: Vital Signs Temp Pulse Resp BP Pulse Ox O2 Del Method 98.5 F 70 17 106/55 L 98 Room Air 11/14/22 12:00 11/14/22 13:00 11/14/22 13:00 11/14/22 13:00 11/14/22 13:00 11/14/22 13:00 Oxygen Delivery Method Room Air Weight: 57.3 kg Body Mass Index (BMI) 24.3 Intake & Output: Intake and Output for Last 24 Hours 11/12/22 11/13/22 11/14/22 23:59 23:59 23:59 Intake Total 1300 / 1300 1297.09 / 1417.09 120 / 120 Output Total 800 / 800 600 / 600 Balance 500 / 500 697.09 / 817.09 120 / 120 Lab / Micro Data Result Diagrams: 11/14/22 03:30 11/14/22 03:30 Labs: Laboratory Results - last 24 hr 11/14/22 03:30: WBC 9.0, RBC 3.62 L, Hgb 11.1 L, Hct 33.2 L, MCV 91.7, MCH 30.7, MCHC 33.4, RDW Std Deviation 43.4, RDW Coeff of Jesus 13.1, Plt Count 260, MPV 9.6, Immature Gran % (Auto) 0.200, Neut % (Auto) 59.5, Lymph % (Auto) 26.8, [place] % (Auto) 12.5 H, Eos % (Auto) 0.8, Baso % (Auto) 0.2, Absolute Neuts (auto) 5.3, Absolute Lymphs (auto) 2.41, Nucleated RBC % 0 11/14/22 03:30: PT 13.5, INR 1.1, APTT 25.3 11/14/22 03:30: Sodium 140, Potassium 3.6, Chloride 108 H, Carbon Dioxide 26.0, Anion Gap 6, BUN 10, Creatinine 0.58, Estim Creat Clear Calc 38.68, Est GFR (MDRD) Af Amer 133, Est GFR (MDRD) Non-Af 110, BUN/Creatinine Ratio 17.3, Glucose 126 H, Calcium 8.5 Radiography Diagnostic Testing: Radiology Impression Echocardiogram 11/12/22 16:25 Interpretation Summary The left ventricular ejection fraction is 55 %. Infero-Basal: Severely Hypokinetic. Mild-Moderate (1-2+) mitral valve insufficiency. Ordering Physician: aPtience Mcgrath Referring Physician: DUSTY MONTERO Performed By: Sheridan Padron RCS Physical Exam Const alert, oriented x3 and well nourished Constitutional Narrative: Upper middle-aged white female lying in bed, patient appears older than stated age, family at bedside, patient appears comfortable and nontoxic, nursing at bedside starting a new IV General Appearance: cooperative HEENT normocephalic, head/scalp atraumatic and moist oral mucous membranes Resp normal respiratory effort, no retractions, no use of accessory muscles and clear to auscultation bilaterally Auscultation: Negative for crackles, rhonchi or wheezes Cardio regular rate, regular rhythm, S1 normal heart sound, S2 normal heart sound, no murmurs, no rub, no gallops and no clicks GI normal to inspection, nondistended, normoactive bowel sounds, soft to palpation, non-tender and non-distended Extremity no clubbing, cyanosis or edema Extremity Narrative: 2+ pedal pulses Neuro oriented x3, moves all extremities and no focal motor deficits Sensorium / Orientation: awake, alert, oriented to person, oriented to place and oriented to time Speech: speech normal Psych affect normal Psych Narrative: Very pleasant, appropriately interactive Assessment & Plan Assessment/Plan (1) Acute inferior myocardial infarction: (2) Hypokalemia: (3) Hyponatremia: (4) SVT (supraventricular tachycardia): (5) Diabetes mellitus, type 2: PLAN: Plan STEMI -Acute inferior myocardial infarction -Status post PCI with GUSTAVO x2 to mid and proximal RCA on 11/12/2021 -Echocardiogram shows an EF of 55% with inferior basal severe hypokinesis and mild to moderate mitral valve insufficiency -Hemoglobin A1c was 6.3 indicating she has diabetes will need to be diet contr olled after discharge -Total cholesterol is 185/LDL 113/HDL 56/triglycerides 81 -Continue aspirin 81 mg daily -Continue Plavix 75 mg daily -Continue lisinopril 2.5 mg daily -Continue metoprolol 25 mg p.o. twice daily -Continue atorvastatin 80 mg daily -Cardiology following appreciate input CAD -Patient with residual lesion in left circumflex -Plan is for PCI to this lesion today -Possible discharge tomorrow depending on cardiology input DM-2 -Hemoglobin is 6.3 -Consult dietitian for diet education -We will need to be on carb controlled/cardiac diet at discharge SVT -Resolved -No further issues -Amiodarone discontinued yesterday Hypokalemia -Resolved Hyponatremia -Resolved with discontinuation of HCTZ -No plans for reinitiation at discharge Hyperlipidemia -Total cholesterol is 185/LDL 113/HDL 56/triglycerides 81 -Continue high intensity dose statin -Home dose is 40 mg--> will need 80 mg dose at discharge Hypertension -Triamterene/HCTZ and isosorbide dinitrate discontinued -Continue metoprolol -Continue low-dose NORBERTO inhibitor Hyperthyroidism -TSH was 1.79 -Continue methimazole -Patient is now on beta-aretha for the above DVT prophylaxis Continue enoxaparin 40 mg CODE STATUS -Full code Charges/Coding Visit Charges Inpatient E&M: 80330 Subs Hosp L2
[2022-11-14] MEDS: 0.9% Normal Saline 1,000 ML 150 ML IV (15:30)
[2022-11-14] MEDS: Methimazole 5 MG Tablet 7.5 MG PO (16:40)
--- NOTE | 2022-11-14 17:45 | NURSING ---
Patient left unit to cathode maker at 1320 Patient returned to unit at 1430
[2022-11-14] MEDS: Atorvastatin Calcium 80 MG Tablet PO (21:23)
[2022-11-15] VITALS (7 sets, daily range): BP systolic 96–114; BP diastolic 45–54; PULSE 63–79; RESP 15–16; TEMP 36.6–36.7; O2SAT 94–98
[2022-11-15] MEDS: Lisinopril 2.5 MG Tablet PO (09:31)
[2022-11-15] MEDS: Metoprolol Tartrate 25 MG Tablet PO (09:32)
[2022-11-15] MEDS: Aspirin 81 MG TAB.CHEW PO (09:32)
[2022-11-15] MEDS: Acetaminophen 325 MG Tablet 650 MG PO (09:32)
[2022-11-15] MEDS: Clopidogrel Bisulfate 75 MG Tablet PO (09:32)
[2022-11-15] MEDS: Enoxaparin 40 MG/0.4 ML Syringe SC (09:33)
--- NOTE | 2022-11-15 12:19 | PCM.DC.SUM ---
Providers Date of Admission: 11/12/22 Date of Discharge: 11/15/22 Primary Care Physician: Dr. Michael Small, DO Consultations 11/12/22 18:56 Consult: Cardiology Routine Consulting Provider: Patience Mcgrath Reason for Consult: nstemi EMERGENT Consult: No MD Notified: Yes Date Notified: 11/12/22 Time Notified: 18:58 Method of Notification: Verbal Reason For Visit: STEMI Diagnosis Discharge Diagnosis (1) Acute inferior myocardial infarction: Status: Acute Code(s): I21.19 - ST elevation (STEMI) myocardial infarction involving other coronary artery of inferior wall (2) Hypokalemia: Status: Acute Code(s): E87.6 - Hypokalemia (3) Hyponatremia: Status: Acute Code(s): E87.1 - Hypo-osmolality and hyponatremia (4) SVT (supraventricular tachycardia): Status: Acute Code(s): I47.1 - Supraventricular tachycardia (5) Diabetes mellitus, type 2: Status: Acute Code(s): E11.9 - Type 2 diabetes mellitus without complications Medications at Discharge Home Medications aspirin 81 mg chewable tablet 81 mg PO DAILY@0800 Check with primary doctor 12/30/15 methimazole 5 mg tablet 7.5 mg PO DAILY Check with primary doctor 12/30/15 atorvastatin 80 mg tablet 80 mg PO QHS #30 tabs 11/15/22 clopidogrel 75 mg tablet 75 mg PO DAILY #30 tabs 11/15/22 lisinopril 2.5 mg tablet 2.5 mg PO DAILY #30 tabs 11/15/22 metoprolol tartrate 25 mg tablet 25 mg PO BID #60 tabs 11/15/22 Hospital Course Operations None Procedures 2-D Echocardiogram, Cardiac catheterization and EKG Summary of Care Provided Minutes Spent on Discharge: 38 Hospital Course: Mrs. Larson is a 66-year-old white female who presented to the emergency department on 11/12/2022 with the chief complaint of retrosternal and intrascapular pain that started on the day of admission. She called EMS when the events occurred and a prehospital EKG showed acute inferior ST elevation FL with reciprocal changes. Upon arrival to the emergency department she was given heparin and Brilinta as aspirin was already given by the EMS. STEMI alert was called and patient was taken emergently to the [facility]. She required PCI with GUSTAVO x2 to the mid and proximal RCA. She was started on Plavix, continued on her aspirin, started on a beta-hina, continued on a statin with an increased dose to 80 mg daily and transitioned from Benzapril to lisinopril. She had a residual lesion in the left circumflex and she was taken for PCI for that lesion on 11/14/2021. She tolerated both procedures well. She had some intra cath and immediate post cath SVT for which she was temporarily placed on amiodarone but had no ongoing issues and this was able to be discontinued. An echocardiogram was obtained and showed an EF of 55% with inferior and basal severe hypokinesis with mild to moderate mitral valve insufficiency. We did obtain cholesterol panel and her total cholesterol is 185/LDL 113/HDL 56/triglycerides 81. Hemoglobin A1c was obtained because she had some noted hyperglycemia and she was found to have an A1c of 6.3 indicating that she has diabetic but will be sent home on diet control. We did have the dietitian consulted meet with her with regards to diabetic education. Prescriptions for her new medications including aspirin, Plavix, lisinopril, metoprolol, atorvastatin were sent to her pharmacy at the time of discharge. We discontinued her triamterene/HCTZ as well as her isosorbide. She was able to be discharged home in stable condition on 11/15/2022. She is to follow-up with cardiology within the next 2 weeks and her primary care physician within the next month. Discharge diagnoses: Acute inferior STEMI CAD DM-2-new diagnosis SVT-resolved Hypokalemia-resolved Hyponatremia-resolved Hyperlipidemia Hypertension Hypothyroidism Physical Exam Const alert, oriented x3, no apparent distress, average body habitus and well nourished Constitutional Narrative: Upper middle-aged white female lying in bed, patient appears older than stated age, family at bedside, patient appears comfortable and nontoxic, nursing at bedside starting a new IV General Appearance: cooperative, comfortable, well kempt and well developed Orientation / Consciousness: awake, oriented to person, oriented to place and oriented to time Exam Limitations: no limitations HEENT normocephalic, head/scalp atraumatic, hearing grossly normal bilaterally and moist oral mucous membranes HEENT Narrative: Mallampati 2-3, no thrush Eyes PERRL, EOMs intact bilaterally and conjunctivae normal Neck no lymphadenopathy, supple and no carotid bruits Neck Narrative: Trachea midline, no thyroid enlargement Resp normal respiratory effort, no retractions, no use of accessory muscles and clear to auscultation bilaterally Auscultation: Negative for crackles, rhonchi or wheezes Cardio regular rate, regular rhythm, S1 normal heart sound, S2 normal heart sound, no murmurs, no rub, no gallops and no clicks GI normal to inspection, nondistended, normoactive bowel sounds, soft to palpation, non-tender and non-distended Extremity normal to inspection, full ROM and no clubbing, cyanosis or edema Extremity Narrative: 2+ pedal pulses Skin no rashes or lesions noted, no wounds, skin turgor normal and no jaundice Skin Narrative: Post catheterization ecchymosis in the area of the right radial artery with no significant tenderness or swelling Neuro oriented x3, CN's II-XII intact bilaterally, moves all extremities and no focal motor deficits Neuro Narrative: Mild generalized weakness proximal greater than distal but no focal deficits Sensorium / Orientation: awake, alert, oriented to person, oriented to place and oriented to time Speech: speech normal Motor Exam: strength 5/5 throughout Psych affect normal Psych Narrative: Very pleasant, appropriately interactive Weight / BMI Weight Weight: 56.7 kg Body Mass Index (BMI) 24.3 ABG / Lab / Microbiology Data Result Diagrams: 11/14/22 03:30 11/14/22 03:30 D/C Instructions Discharge Diet: Low fat / Low cholesterol and 1800 Calorie Control Diet Discharge Activity: Return to Normal Activity Return to work on: 11/16/22 Meaningful Use Info Meaningful Use Diagnoses (Choose all that apply): AMI AMI/Post PCI/Angioplasty Aspirin given w/in 24hrs of arrival?: Yes ASA at discharge?: Yes Statins at discharge?: Yes Charles/ARB at discharge?: Yes Beta Hina at discharge?: Yes Done w/ Acute FL measure.: Yes Discharge Plan Admission Admit Date/Time: 11/12/22 16:24 Primary Reason for Your Visit: Chest pain/STEMI Attending Provider: Rosa Quiros Primary Care Provider: Michael Small Consulting Providers: Patience Mcgrath ; Margaux Campbell Discharge Orders/Prescriptions Prescriptions: New atorvastatin 80 mg Tablet 80 mg PO QHS Qty: 30 3RF clopidogrel 75 mg Tablet 75 mg PO DAILY Qty: 30 11RF lisinopril 2.5 mg Tablet 2.5 mg PO DAILY Qty: 30 2RF metoprolol tartrate 25 mg Tablet 25 mg PO BID Qty: 60 2RF Continued methimazole 5 MG tablet 7.5 mg PO DAILY aspirin 81 MG tablet,chewable 81 mg PO DAILY@0800 Discontinued atorvastatin 40 MG tablet 40 mg PO QHS triamterene-hydrochlorothiazid 1 TABLET tablet 1 tab PO DAILY isosorbide dinitrate [Isordil Titradose] 5 MG tablet 10 mg PO TID Benazepril Hcl [Lotensin] 5 MG tablet 5 mg PO DAILY Referrals / Follow Up: Patience Mcgrath MD [Med Staff - Active Staff] - Within 2 Weeks (call later today or tomorrow to make appt) Michael Small DO [Primary Care Provider] - Within 2 Weeks Disposition Disposition (needs filled in before D/C Order can be placed): Home, Self Care Charges/Coding Visit Charges Inpatient E&M: 64964 Disch Hosp >30min
--- NOTE | 2022-11-15 13:49 | CL.I_ITS ---
Patient Name: GARRICK SETH Study Date: 11/14/2022 Performing: Patience Mcgrath MD Ht: 60 inches 152.4 cm : 1955 Wt: 128.09 lbs 58.1 kg Age: 66 Gender: female BSA: 1.54 PROCEDURE(S) PERFORMED IC12-(38837/C9600)GUSTAVO W/WO PTCA, SINGLE CORONARY ARTERY CLINICAL PROFILE AND CO-MORBIDITIES Indications: ACS > 24 hrs Heart Failure: None Angina Classification Anginal Classification w/in 2 Weeks: CCS IV CONCLUSIONS Successful GUSTAVO Mid LCX into OM1 using [place] [place] 2.25x18 mm RECOMMENDATIONS ASA Indefinitley Plavix for at least 12 months DESCRIPTION OF PROCEDURE The patient arrived to the procedure lab. The risks and benefits of the procedure as well as a full description of our services here and current unavailability of surgical backup were fully explained to the patient and/or their significant other prior to the catheterization. The Timeout was completed, verifying the correct patient and procedure. The patient's procedural site was prepped and draped in the usual fashion. Local anesthetic was given subcutaneously to right radial region with Lidocaine 2%. Using a modified Seldinger technique, arterial access was obtained via the right radial artery, a 6Fr sheath was inserted.. XB 3 Guide catheter was inserted and engaged into the LCA. XB 3.0 Guide catheter was exchanged for a XB 2.5 Runthrough Guide wire was advanced to the Circumflex. 2.25x18 Res[facility] [place] Drug Eluting stent was inserted. Drug Eluting stent was advanced across the lesion in the circumflex, mid. Angiogram performed post stent deployment. 2.25x8 NC Euphora Balloon catheter was inserted. Balloon catheter was inserted post stent. Angiogram performed post balloon dilatation. The arterial sheath was pulled and a TR Band was applied for hemostasis 15cc of air INTERVENTION INFORMATION LESION SITE: Circumflex (Mid) Lesion Complexity: Non-High/Non-C, lesion length: 16 mm Pre Stenosis: 90 % Pre intervention NEO flow: 3 PROCEDURE: Drug Eluting Stent with post dilatation Post Stenosis: 0 % Post intervention NEO flow: 3 Lesion Devices: Terumo .014 180cm Runthrough Extra Floppy straight Cordis 6 Fr XB3.0 100cm Guide Catheter Cordis 6 Fr XB2.5 VBT 100cm Guide Catheter Medtronic [place] [place] RX GUSTAVO 2.25x18 Medtronic NC EUPHORA RX 2.25x08 BALLOON COMPLICATIONS No Complications PROCEDURE MEDICATIONS Fentanyl 50 mcg IV Versed 1 mg IV Oxygen: 2 L/min via nasal cannula Heparin given IA 11/14/2022 13:46:54 Heparin 5000 unit(s) IV 11/14/2022 13:49:04 Nitro 200 mcg IC 11/14/2022 14:02:53 Nitro 200 mcg IC 11/14/2022 14:02:53 Verapamil 2.5mg, Ntg 200mcgs, 2000 units of Heparin given IA 11/14/2022 13:46:54 SUMMARY OF HEMODYNAMIC DATA Time AIR REST ECG 13:34:50 AO 118/51 (80) SA 13:52:33 Signed By Patience Mcgrath MD On 11/14/2022 14:18:20 Patience Mcgrath MD
== END 2022-11-15 14:35 | disposition home or self-care (01) | DRG 247 ==
LOC: ED 15:32 → ICU 15:41
PROVIDERS: Student in an Organized Health Care Education/Training Program; Admitting Provider Internal Medicine Cardiovascular Disease; Emergency Provider Emergency Medicine; PCP Family Medicine; Visit Provider Internal Medicine
DX: I21.11 ST elevation (STEMI) myocardial infarction involving right coronary artery (principal); E87.1 Hypo-osmolality and hyponatremia; I47.1 Supraventricular tachycardia; E11.65 Type 2 diabetes mellitus with hyperglycemia; E05.90 Thyrotoxicosis, unspecified without thyrotoxic crisis or storm; I10 Essential (primary) hypertension; E78.00 Pure hypercholesterolemia, unspecified; I25.10 Atherosclerotic heart disease of native coronary artery without angina pectoris; E87.6 Hypokalemia; E03.9 Hypothyroidism, unspecified; I34.0 Nonrheumatic mitral (valve) insufficiency; Z79.82 Long term (current) use of aspirin
CPT/HCPCS: 80048; 80053; 80061; 83036; 84443; 84484; 85025; 85027; 85347; 85610; 85730; 92928; 92941; 93005; 93306; 93458; 97161; 97165; 97803; 99152; 99153; 99284; J7030; Q9967; A4216; C1725; C1769; C1874; C1887; C1894; C9600; C9606

== ENCOUNTER → 2023-02-19 | Outpatient (CLI) | payer OTHER, SELFPAY ==
[2023-02-19 10:22] LABS: Hematocrit 40.2 % (37-47); Hemoglobin 13.2 g/dL (12.0-15.0); Mean Corp Hgb Conc 32.8 g/dL (32-36); Mean Corpuscular Hgb 31.2 pg (27.0-32.0); Mean Platelet Vol. 9.8 fl (6.2-12.0); Platelet Count 265 K/mm3 (150-450); RBC Distribution Width CV 12.7 % (11.6-14.6); Red Blood Count 4.23 M/mm3 (4.2-5.4); White Blood Count 6.7 K/mm3 (4.4-11.0)
[2023-02-19 11:19] LABS: AST(SGOT) 24 U/L (15-37); Alanine Aminotransfer ALT/SGPT 29 U/L (13-56); Albumin, Serum 3.2 g/dL (3.2-5.0); Alkaline Phosphatase 100 U/L (45-117); Anion Gap 5 (5-15); BUN 15 mg/dL (7-18); BUN/Creat Ratio 21.2 RATIO (10-20); Bilirubin, Direct 0.18 mg/dL (0.00-0.30); Calcium,Total 8.9 mg/dL (8.5-10.1); Chloride 107 mmol/L (98-107); Cholesterol 159 mg/dL (200); Creatinine, Serum 0.71 mg/dL (0.55-1.02); EST Glomerular Filtration Rate 87 mL/min (>60); Est Glom Filt Rate - Afr Amer 105 mL/min (>60); Globulin 3.4 g/dL (2.2-4.2); Glucose 122 mg/dL (74-106); High Density Lipoprotein 64 mg/dL; Potassium 3.9 mmol/L (3.5-5.1); Protein, Total 6.6 g/dL (6.4-8.2); Sodium Level 140 mmol/L (136-145); Thyroid Stim Hormone (TSH) 6.02 uIU/mL (0.358-3.74); Triglycerides 94 mg/dL; Very Low Density Lipoprotein 19 mg/dL (5-40)
== END | disposition home or self-care (01) ==
LOC: LAB 09:53
PROVIDERS: PCP Family Medicine; Referring Provider Internal Medicine Cardiovascular Disease; Visit Provider Internal Medicine Cardiovascular Disease
DX: I25.10 Atherosclerotic heart disease of native coronary artery without angina pectoris (principal); I10 Essential (primary) hypertension; E78.00 Pure hypercholesterolemia, unspecified; Z95.5 Presence of coronary angioplasty implant and graft
CPT/HCPCS: 36415; 80048; 80061; 80076; 84443; 85027

== ENCOUNTER → 2023-09-30 | Outpatient (CLI) | payer OTHER, SELFPAY ==
[2023-09-30 09:57] LABS: ALB/GLOB Ratio 0.9 RATIO (0.9-2.4); AST(SGOT) 22 U/L (15-37); Alanine Aminotransfer ALT/SGPT 28 U/L (13-56); Albumin, Serum 3.3 g/dL (3.2-5.0); Alkaline Phosphatase 95 U/L (45-117); Anion Gap 4 (5-15); BUN 12 mg/dL (7-18); BUN/Creat Ratio 18.3 RATIO (10-20); CPK Total, Creatine Kinase 88 U/L (26-192); Chloride 105 mmol/L (98-107); Cholesterol 166 mg/dL (200); Creatinine, Serum 0.66 mg/dL (0.55-1.02); EST Glomerular Filtration Rate 95 mL/min (>60); Est Glom Filt Rate - Afr Amer 115 mL/min (>60); Globulin 3.6 g/dL (2.2-4.2); Glucose 124 mg/dL (74-106); High Density Lipoprotein 65 mg/dL; Potassium 3.8 mmol/L (3.5-5.1); Protein, Total 6.9 g/dL (6.4-8.2); Sodium Level 139 mmol/L (136-145); Thyroid Stim Hormone (TSH) 3.37 uIU/mL (0.358-3.74); Triglycerides 130 mg/dL; Very Low Density Lipoprotein 26 mg/dL (5-40)
== END | disposition home or self-care (01) ==
PROVIDERS: PCP Family Medicine; Referring Provider Internal Medicine Cardiovascular Disease; Visit Provider Internal Medicine Cardiovascular Disease
DX: E78.5 Hyperlipidemia, unspecified (principal); I25.10 Atherosclerotic heart disease of native coronary artery without angina pectoris; I10 Essential (primary) hypertension; R53.83 Other fatigue; E05.90 Thyrotoxicosis, unspecified without thyrotoxic crisis or storm
CPT/HCPCS: 36415; 80053; 80061; 82550; 84443

== ENCOUNTER → 2024-04-24 | Outpatient (CLI) | payer SELFPAY, OTHER ==
--- NOTE | 2024-04-24 06:43 | ECHOCS_ITS ---
Reason For Study: Other Fatigue Procedure This was a 2D Doppler, Color Flow transthoracic echocardiogram. The study was technically difficult. Contrast injection was performed. Exam performed in department. Left Ventricle Normal size and thickness. The left ventricular ejection fraction is 65 %. Diastolic function is indeterminate. Right Ventricle Normal right ventricle. Atria The left and right atria are normal. Mitral Valve Mild (1+) mitral valve insufficiency. Tricuspid Valve Trivial tricuspid valve insufficiency. Unable to estimate RV systolic pressure due to insufficient tricuspid regurgitant envelope. Aortic Valve Aortic sclerosis, no stenosis. Pulmonic Valve The pulmonic valve is not well visualized. Great Vessels Normal sized aortic root. Pericardium/Pleural No pericardial effusion. Medication 22 gauge I.V. with prn adaptor inserted into right arm. Diluted definity 1ml given slow IV push to enhance endocardial definition. MMode/2D Measurements & Calculations LVIDd: 3.9 cm IVSd: 0.87 cm Ao root diam: 3.2 cm LVIDs: 2.5 cm LVPWd: 0.87 cm LA dimension: 3.5 cm RVDd: 2.6 cm FS: 35.8 % LAV(MOD-bp): 34.1 ml LVAd ap4: 19.0 cm2 SV(MOD-sp4): 28.5 ml LAV(MOD-bp) Indexed: 21.9 ml/m2 LVLd ap4: 6.7 cm LAV(MOD-sp2): 32.3 ml EDV(MOD-sp4): 43.6 ml LAV(MOD-sp4): 32.7 ml EDV(sp4-el): 45.8 ml LVAs ap4: 9.4 cm2 LVLs ap4: 4.9 cm ESV(MOD-sp4): 15.1 ml ESV(sp4-el): 15.3 ml EF(MOD-sp4): 65.3 % EF(sp4-el): 66.5 % SV(sp4-el): 30.5 ml LA A4 area: 14.2 cm2 RA A4 area: 12.0 cm2 TAPSE: 2.6 cm Time Measurements MV dec time: 0.21 sec Doppler Measurements & Calculations MV E max esa: 91.3 cm/sec Lat Peak E' Esa: 6.6 cm/sec Med Peak E' Esa: 8.7 cm/sec MV A max esa: 130.3 cm/sec E/E' lat: 13.9 E/E' med: 10.5 MV E/A: 0.70 MV V2 max: 139.8 cm/sec MV P1/2t max esa: 104.1 cm/sec Ao V2 max: 163.6 cm/sec MV max P.8 mmHg MV P1/2t: 68.1 msec Ao max P.7 mmHg MV V2 mean: 69.3 cm/sec Ao V2 mean: 103.8 cm/sec MV mean P.4 mmHg MV dec slope: 447.8 cm/sec2 Ao mean P.9 mmHg MV V2 VTI: 34.3 cm MVA(P1/2t): 3.2 cm2 Ao V2 VTI: 33.3 cm AV (velocity ratio): 0.84 LV V1 max: 128.1 cm/sec MR max esa: 684.1 cm/sec PA V2 max: 95.1 cm/sec LV V1 max P.6 mmHg MR max P.2 mmHg PA max PG (full): 1.2 mmHg LV V1 mean P.9 mmHg MR mean esa: 521.3 cm/sec LV V1 mean: 79.0 cm/sec MR mean P.5 mmHg LV V1 VTI: 28.0 cm MR VTI: 248.6 cm ECHO/Echo Complete W/ Contrast Interpretation Summary The left ventricular ejection fraction is 65 %. Diastolic function is indetermi luther. Mild (1+) mitral valve insufficiency. Aortic sclerosis, no stenosis. Ordering Physician: Patience Mcgrath Referring Physician: Patience Mcgrath Performed By: Patrice Mcallister RCS
--- NOTE | 2024-04-27 11:29 | STRESSREP ---
Stress Test Report Date: 04/24/2024 Procedure: Pharmacologic stress nuclear imaging study Indications: Coronary artery disease Consent: Per the patient Procedure: The patient underwent pharmacologic (Regadenoson 0.4mg ) evaluation with a peak heart rate of 103 beats per minute (68%predicted maximal heart rate) and a peak blood pressure of 138/76 mmHg. The baseline ECG demonstrated sinus rhythm with nonspecific ST changes in inferior leads. The peak pharmacologic ECG was nondiagnostic secondary to baseline abnormality. There were no cardiac dysrhythmias pretest, during pharmacologic infusion, or recovery. There was no complaint of chest discomfort during pharmacologic infusion or recovery. The patient was injected with 12.0 millicuries of technetium 99m Cardiolite and subsequently rest SPECT Cardiolite nuclear imaging was obtained in the horizontal long, vertical long, and short axis views. The patient underwent pharmacologic (Regadenoson) evaluation. The patient was injected with 36.0 millicuries of technetium 99m Cardiolite and subsequently stress SPECT Cardiolite nuclear imaging was obtained in the horizontal long, vertical long, and short axis views. A gated Cardiolite study at peak stress was obtained. The examination was stopped secondary to completion of protocol. Rest and stress SPECT Cardiolite nuclear imaging status post realignment, normalization, and attenuation correction demonstrate no fixed or reversible perfusion defects. There is end systolic thickening and brightening. The gated Cardiolite study demonstrates myocardial thickening and inward wall motion. The reported LVEF is 83%. Impression: 1. Pharmacologic (Regadenoson) evaluation 2. Peak pharmacologic ECG with no diagnostic ischemic changes. 3. There were no cardiac dysrhythmias pretest, during pharmacologic infusion, or recovery. 5. Rest and stress SPECT Cardiolite nuclear imaging demonstrate relative uniform tracer uptake and myocardial perfusion appearing within normal limits. 6. The gated Cardiolite study reports an LVEF of 83%. This note was generated with [employer] software. It may contain incorrect words, spelling, and punctuation that were not noted in checking the note before signing.
== END | disposition home or self-care (01) ==
LOC: CVS 06:39
PROVIDERS: PCP Family Medicine; Referring Provider Internal Medicine Cardiovascular Disease; Visit Provider Internal Medicine Cardiovascular Disease
DX: R53.83 Other fatigue (principal); I25.10 Atherosclerotic heart disease of native coronary artery without angina pectoris; I10 Essential (primary) hypertension; R07.9 Chest pain, unspecified; Z95.5 Presence of coronary angioplasty implant and graft
CPT/HCPCS: 78452; 93017; 93306; A9500; Q9957; A4216; C8929; J2785